=== PATIENT | male | born 1995 | race Caucasian/White ===

== ENCOUNTER 2024-01-16 02:55 | Emergency (ER) | payer BC, SELFPAY ==
[2024-01-16 02:57] VITALS: BP 118/98
--- NOTE | 2024-01-16 03:43 | ED.GENMED ---
History of Present Illness
<GI Rodríguez - Last Filed: 01/16/24 03:52>
General
Chief Complaint: Flank Pain
Source: patient
Exam Limitations: none
Time Seen by Provider: 01/16/24 03:24
Nursing documentation reviewed up to this point in time: agreed with
Travel History
Have you had any contact with someone who has COVID-19?: No
Do you have any symptoms of coronavirus? Fever > 100 degrees, chills, cough, shortness of breath, sore throat, loss of taste or smell, muscle aches, or headache?: No
History of Present Illness
History of Present Illness:
This is a 28 year old male, with a hx of a previous kidney stone, who reports to the ED c/o left sided back pain x 1 hour. Pt states he woke up with the pain and it is localized to his back. He denies any radiation of the pain to his groin. Pt
states he paces to keep control of the pain. He states he had a kidney stone 5 months ago and his symptoms today feel similar to this previous episode. He denies any dysuria, fever, chills, abdominal pain, nausea, vomiting, CP, SOB, or hematuria.
Past History
<GI Rodríguez - Last Filed: 01/16/24 03:52>
Past History
ED Past Medical History: Other (kidney stones, varicocele)
ED Past Surgical History: Other (Myringotomy tubes)
Social History
Tobacco: Former smoker
Alcohol: None
Drug: None
Review of Systems
<GI Rodríguez - Last Filed: 01/16/24 03:52>
Review of Systems
Allergies reviewed?: Yes
All Other Systems: ROS reviewed and negative except as documented in HPI and ROS
Constitutional: Reports no symptoms; Denies fever or chills
EENT: Reports no symptoms
Respiratory: Reports no symptoms; Denies trouble breathing
Cardiac: Reports no symptoms; Denies chest pain
ABD/GI: Reports no symptoms; Denies abdominal pain, nausea or vomiting
: Reports flank pain; Denies dysuria or bleeding
Musculoskeletal: Reports no symptoms
Skin: Reports no symptoms
Neurological: Reports no symptoms
Psychiatric: Reports no symptoms
Phy Exam
<GI Rodríguez - Last Filed: 01/16/24 03:52>
General Physical Exam
General Presentation: mild distress
General age: appears stated age
General Skin: warm and dry
General Habitus: normal
General Mental: alert
General Hydration: dry mucous membranes
ENT Exam
ENT Exam: normocephalic and swallowing well
Cardiovascular Exam
Cardiovascular Exam: regular rate/rhythm, no edema, no murmur and normal peripheral pulses
Pulmonary Exam
Pulmonary Exam: lungs clear, no respiratory distress, no wheezing and no cough
Gastrointestinal Exam
Gastrointestinal Exam: normal bowel sounds, non tender, soft, non distended and other (mild left sided CVA tenderness, no right CVAT)
Neurological Exam
Neurological Exam: alert and oriented x3
Musculoskeletal Exam
Musculoskeletal Exam: full ROM and no edema
Skin Exam
Skin Exam: normal color and warm/dry
Psychiatric Exam
Psychiatric Exam: normal mood/affect
Course
<GI Rodríguez - Last Filed: 01/16/24 03:52>
Orders/Labs/Results
Orders:
Orders
01/16/24 03:39
CBC/With Diff [Complete Blood Count/With Diff] Urgent
CMP [Comprehensive Metabolic Panel] Urgent
Urinalysis Reflex To Culture Urgent
Date Specimen was Collected: 01/16/24
Time Specimen was Collected: 03:27
01/16/24 03:46
0.9% Sodium Chloride 1000 ml [Nss] 1,000 ml IV BOLUS
Ketorolac [Toradol] 30 mg IV NOW STA
01/16/24 03:48
Renal & Bladder US [US Renal With Bladder] Urgent
Comment:
Reason For Exam: acute L flank to L low back pain
Abnormal Lab Results
01/16/24
03:39
Absolute Monos (auto) 0.7 H 10^3/uL
(0.1-0.6)
01/16/24 03:39
01/16/24 03:39
Vital Signs
Initial and Last Documented VS:
Initial Vital Signs
Temp Pulse Resp BP Pulse Ox
97.8 F 78 22 118/98 98
01/16/24 02:57 01/16/24 02:57 01/16/24 02:57 01/16/24 02:57 01/16/24 02:57
Last Documented Vital Signs
Temp Pulse Resp BP Pulse Ox
97.8 F 78 22 118/98 98
01/16/24 02:57 01/16/24 02:57 01/16/24 02:57 01/16/24 02:57 01/16/24 02:57
<Pauline Montaño, DO - Last Filed: 01/16/24 05:36>
Orders/Labs/Results
Orders:
Orders
01/16/24 03:39
CBC/With Diff [Complete Blood Count/With Diff] Urgent
CMP [Comprehensive Metabolic Panel] Urgent
Urinalysis Reflex To Culture Urgent
Date Specimen was Collected: 01/16/24
Time Specimen was Collected: 03:27
01/16/24 03:46
0.9% Sodium Chloride 1000 ml [Nss] 1,000 ml IV BOLUS
Ketorolac [Toradol] 30 mg IV NOW STA
01/16/24 03:48
Renal & Bladder US [US Renal With Bladder] Urgent
Comment:
Reason For Exam: acute L flank to L low back pain
Abnormal Lab Results
01/16/24
03:39
Absolute Monos (auto) 0.7 H 10^3/uL
(0.1-0.6)
01/16/24 03:39
01/16/24 03:39
Vital Signs
Initial and Last Documented VS:
Initial Vital Signs
Temp Pulse Resp BP Pulse Ox
97.8 F 78 22 118/98 98
01/16/24 02:57 01/16/24 02:57 01/16/24 02:57 01/16/24 02:57 01/16/24 02:57
Last Documented Vital Signs
Temp Pulse Resp BP Pulse Ox
97.8 F 78 22 118/98 98
01/16/24 02:57 01/16/24 02:57 01/16/24 02:57 01/16/24 02:57 01/16/24 02:57
<Pauline Montaño DO - Last Filed: 01/16/24 05:36>
*Radiology
Radiology exam reviewed: radiology read reviewed (Renal ultrasound is unremarkable. No stones nor hydronephrosis.)
*Pulse Oximetry
Patient hypoxic: no
*Critical Care Note
Total Time (30-74mins, 75-104mins- exclusive of procedures): Not Applicable
ED Attending Note
<GI Rodríguez - Last Filed: 01/16/24 03:52>
-
Portions of this chart may have been created with voice recognition software.� Occasional wrong word or��sound alike� substitutions may have occurred due to the inherent limitations of voice recognition software.
<Pauline Montaño DO - Last Filed: 01/16/24 05:36>
ED Attending Note
Patient seen and examined by attending physician: Yes
I performed the substantive portion of visit, reviewed & personally made and approve the management plan that is documented in note by myself or GALLO.: Yes
I performed a history and physical exam of patient and discussed management with resident, I reviewed resident's note and agree with documented findings and plan of care.: Yes
ED Attending Note:
This is a 28-year-old male who complains of abrupt onset of left low back pain that woke him from sleep around 2:30 this morning. Back pain is worse with sitting or lying down, improves when he is up and moving about. No radiation of the pain.
He states pain feels somewhat similar to right flank pain that brought him to the ED October 14, 2023. At that time he was noted to have scant microscopic hematuria but CT of the abdomen pelvis showed a questionable tiny filling defect distal
right ureter but no hydronephrosis nor hydroureter. He had relief with an IV dose of Toradol and no return of pain. CAT scan at that time showed no intrarenal stones on either side.
He denies nausea nor vomiting, no diarrhea or constipation, no fevers or chills, no dysuria no urgency no hematuria.
He has provided urine sample in the ED which has been strained for scant tiny whitish particulate matter/gravel.
He denies recent heavy lifting nor fall nor injury.
GENERAL: 28-year-old male appears his stated age, awake and alert, pleasant, appears in no acute distress, intermittently pacing about exam room. Vital signs within normal limits.
EYE: anicteric
NECK: Supple, nontender, no meningismus, no significant adenopathy.
ENT: oral mucosa is moist. Rhinorrhea.
CARDIAC: Regular rate and rhythm. no murmur.
LUNGS: Clear breath sounds bilaterally, no acute respiratory distress, no wheezes/rales/rhonchi
ABDOMEN: Soft, nondistended, without focal tenderness, no r/g, minimal left CVA tenderness with percussion. Normoactive BS.
BACK: No midline bony tenderness.
NEUROLOGICAL: Alert and oriented x3, no focal neuro deficits. Gait is goss and steady.
SKIN: Warm and dry, normal color, skin intact. No rash.
MUSCULOSKELETAL: No C/C/E. peripheral pulses are full and equal b/l. No palpable tenderness.
PSYCH: Normal and appropriate interaction.
Concern for renal colic on the left, perhaps recently passed gravel/stone, other consideration is left low back strain.
Will check urinalysis and plan for renal ultrasound with bladder.
Will give IV Toradol for pain.
01/16/2024 0535 AM
Patient is comfortable, pain-free after IV Toradol.
Labs are unremarkable as is urinalysis which is crystal clear.
Renal ultrasound is unremarkable. No stones nor hydronephrosis.
At this point left low back pain appears to be more musculoskeletal in nature. No evidence of ureteric stone, no evidence of UTI/pyelonephritis.
Discussed importance of remaining well-hydrated on a daily basis.
If pain returns recommend he take [id number] ibuprofen as needed for pain.
Prompt follow-up with primary care physician for recheck.
Discharge Plan
Departure
Patient Disposition: Home (Routine Discharge)
Date of Disposition: 01/16/24
Time of Disposition: 05:33
Patient with high blood pressure during this ER visit?: No
Condition: Good
Discharge Problem:
Acute left-sided low back pain
Instructions: Low Back Pain (DC)
Prescriptions:
No Action
ondansetron 4 MG tablet,disintegrating
4 mg PO TIDPRN PRN (Reason: nausea/vomiting) Qty: 12 0RF
ibuprofen 600 mg tablet
600 mg PO TID PRN (Reason: Pain) Qty: 14 0RF
Referrals:
UNKNOWN - PT DOES,NOT KNOW [Family Provider] - Call in 1-3 days for appt
Interventions
Interventions:
*Risk Screen - Suicide Last Done: 01/16/24 02:57
*Neglect/Abuse Screening Last Done: 01/16/24 02:57
GQ-Moveot-Xllglurtiu Assessment Last Done: 01/16/24 03:30
ED-Male Genitourinary Assessment Last Done: 01/16/24 03:30
[2024-01-16 03:48] LABS: % Basophils 0.7 % (0-2); % Eosinophils 3.5 % (0-6); % Immature Granulocytes 0.4 % (0-0.5); % Lymphocytes 29.6 % (20.5-51.1); % Monocytes 8.3 % (1.7-9.3); % Neutrophils 57.5 % (42.2-75.2); Absolute Basophils 0.1 10^3/uL (0-0.2); Absolute Eosinophils 0.3 10^3/uL (0-0.7); Absolute Lymphocytes 2.4 10^3/uL (1.2-3.4); Absolute Monocytes 0.7 10^3/uL (0.1-0.6); Absolute Neutrophils 4.7 10^3/uL (1.4-6.5); Hematocrit 42.8 % (39.0-52.0); Hemoglobin 15.4 g/dL (13.0-18.0); Mean Corpuscular Hgb 30.6 pg (27.0-31.0); Mean Corpuscular Volume 84.9 fL (80.0-94.0); Mean Platelet Volume 9.4 fL (7.4-10.4); Nucleated Red Blood Cells % 0 % (-); Platelet Count 206 10^3/uL (130-400); Red Blood Cell Count 5.04 10^6/uL (4.70-6.10); White Blood Cell Count 8.1 10^3/uL (4.8-10.8)
[2024-01-16] MEDS: TORADOL 30 MG IV (03:53)
[2024-01-16] MEDS: NSS 1000 IV (03:54)
[2024-01-16 04:02] LABS: ALT (SGPT) 25 U/L (0-50); AST (SGOT) 31 U/L (17-59); Albumin 4.6 g/dl (3.5-5.0); Alkaline Phosphatase 90 U/L (38-126); Blood Urea Nitrogen 16 mg/dl (9-20); Calcium 9.2 mg/dl (8.4-10.2); Carbon Dioxide 29 mmol/L (22-30); Chloride 106 mmol/L (98-107); Glucose 91 mg/dl (70-99); Sodium 140 mmol/L (135-145); Total Bilirubin 1.2 mg/dl (0.2-1.3); Total Protein 7.2 g/dl (6.3-8.2); eGFR > 60.00
[2024-01-16 04:50] LABS: Urine Albumin Negative (Neg - Trace); Urine Bilirubin Negative (Negative); Urine Character Clear (Clear); Urine Color Yellow; Urine Glucose Negative (Negative); Urine Ketone Negative (Negative); Urine Leukocyte Negative (Negative); Urine Nitrite Negative (Negative); Urine Occult Blood Negative (Negative); Urine Urobilinogen Negative (Neg - 1+)
== END 2024-01-16 06:40 | disposition home or self-care (01) ==
LOC: EMR 02:55
PROVIDERS: EMERGENCY PHYSICIAN Emergency Medicine
DX: M54.50 Low back pain, unspecified (principal); Z87.442 Personal history of urinary calculi; Z87.891 Personal history of nicotine dependence
CPT/HCPCS: 99284; 96374; 96361; 76770; 80053; 81003; 85025

== ENCOUNTER → 2025-10-01 11:51 | Outpatient (REF) | payer OTHER, SELFPAY | LOC: HWRAD 11:51 | PROVIDERS: ATTENDING PHYSICIAN Nurse Practitioner Adult Health | DX: R07.89 Other chest pain (principal) | CPT/HCPCS: 71046 ==